=== PATIENT | male | born 1985 | race African-American/Black ===

== ENCOUNTER 2017-06-29 09:18 | Emergency (ER) | payer MEDICAID, OTHER ==
[~2017-06-29] VITALS: Ht 185.4 cm; Wt 81.6 kg
[2017-06-29] MEDS ORDERED: ACETAMINOPHEN 325 MG TAB PO ONE (09:30)
[2017-06-29 11:12] VITALS: BP 134/95
[2017-06-29] MEDS ORDERED: IBUPROFEN 600 MG TAB PO ONE (11:15)
== END 2017-06-29 11:15 | disposition home or self-care (01) ==
LOC: ER 09:18
DX: S52.501A Unspecified fracture of the lower end of right radius, initial encounter for closed fracture (principal); S52.601A Unspecified fracture of lower end of right ulna, initial encounter for closed fracture; W01.0XXA Fall on same level from slipping, tripping and stumbling without subsequent striking against object, initial encounter; Y93.89 Activity, other specified; Y99.8 Other external cause status; Y92.59 Other trade areas as the place of occurrence of the external cause
CPT/HCPCS: 29105; 73110

== ENCOUNTER 2017-07-07 20:19 | Emergency (ER) | payer MEDICAID ==
[~2017-07-07] VITALS: Ht 185.4 cm; Wt 81.6 kg
[2017-07-07 20:30] VITALS: BP 136/87
== END 2017-07-07 23:52 | disposition left against medical advice (07) ==
LOC: ER 20:25
DX: M79.642 Pain in left hand (principal); Z53.21 Procedure and treatment not carried out due to patient leaving prior to being seen by health care provider; X58.XXXA Exposure to other specified factors, initial encounter; Y93.72 Activity, wrestling; Y99.8 Other external cause status; Y92.89 Other specified places as the place of occurrence of the external cause
CPT/HCPCS: 73130

== ENCOUNTER 2017-09-19 00:07 | Emergency (ER) | payer MEDICAID ==
[~2017-09-19] VITALS: Ht 185.4 cm; Wt 85.3 kg
[2017-09-19] MEDS ORDERED: LORazepam 2MG/ML-1ML VIAL ONE (01:00)
[2017-09-19] MEDS ORDERED: HALOPERIDOL LACTATE 5 MG/ML INJ VIAL ONE (01:04)
[2017-09-19] MEDS ORDERED: LORazepam 2MG/ML-1ML VIAL IM ONE ×2 (01:15)
[2017-09-19] MEDS ORDERED: HALOPERIDOL LACTATE 5 MG/ML INJ VIAL IM ONE (01:15)
[2017-09-19] MEDS ORDERED: diphenhdrAMINE HCL 50 MG/1 ML VL IM ONE (01:15)
[2017-09-19 01:50] VITALS: BP 141/83
== END 2017-09-19 02:31 | disposition home or self-care (01) ==
LOC: ER 00:08
DX: M25.512 Pain in left shoulder (principal); Z02.89 Encounter for other administrative examinations
CPT/HCPCS: 73020; 96372; 99284; J1630; J2060